=== PATIENT | female | born 1955 | race Caucasian/White ===

== ENCOUNTER 2019-11-22 14:53 | Emergency (ER) | payer OTHER ==
[2019-11-22 14:57] VITALS: TEMP 98.1; BMI 25.8
--- NOTE | 2019-11-22 15:13 | PDOC ---
History of Present Illness - General Chief Complaint: Pain, Acute Stated Complaint: LEFT SHOULDER PAIN Time Seen by Provider: 11/22/19 15:12 - History of Present Illness Initial Comments: 11/22/19 16:06 Chief complaint: Pain left shoulder HPI: Patient was playing pickle ball, ran for the ball and stumbled, falling onto her left shoulder. Now has severe shoulder pain, accompanied by significant nausea. She is uncertain whether she bumped her head, but is certain that her initial impact was on the shoulder. There is also pain in the left lateral neck muscles and trapezius Review of systems: Denies visual or focal neurologic symptoms including numbness tingling pain or weakness in the left arm. Denies chest pain, shortness of breath, abdominal pain, vomiting or diarrhea, vaginal bleeding or discharge, urinary tract symptoms. Remainder of systems reviewed and negative Past medical history: Right shoulder surgery in the distant past, recent depression due to the COVID-19 pandemic, takes Prozac. No other medications. No other significant medical or surgical illnesses. Fully active. Social history: Denies tobacco or drugs. Occasional social alcohol, none recently. Fully active physically. Family history reviewed and noncontributory Physical exam: Alert and oriented well-developed well-nourished moderate distress due to left shoulder pain and nausea, cooperative Afebrile, vital signs normal Atraumatic. PERRLA 4 mm, fundi benign with sharp disc margins and good central venous pulsations. Visual gonzalez intact to confrontation. EOMs full without diplopia. ENT clear Neck without point tenderness or deformity. Full range of motion in flexion and extension without pain. Indicates mild pain/stiffness over the left sternomastoid and trapezius muscles. Lungs clear, full breath sounds bilaterally, no wheezes rales or rhonchi. No chest wall or rib cage tenderness or deformity CV S1-S2 normal without murmur rub or gallop pulses full and symmetric no JVD or edema no bruits Abdomen soft nontender without mass organomegaly Spine/pelvis without point tenderness or deformity Extremities without visible or palpable trauma Left shoulder: No visible or palpable deformity. Diffuse tenderness over the rotator cuff, acromion, and humeral head. Limited range of motion in abduction to approximately 90 degrees due to pain. Pulses full. No distal sensory or motor deficits. Full strength elbow forearm and wrist and hand. Assessment: Left shoulder injury, probably rotator cuff contusion, rule out fracture. No definite head injury from history or physical exam. Nausea could be due to pain or less likely minor head injury Plan: Brain CT, left shoulder x-ray, symptomatic treatment for nausea and pain, further evaluation depending on results. Past History - Medical History Allergies/Adverse Reactions: Allergies Allergy/AdvReac Type Severity Reaction Status Date / Time ciprofloxacin [From Cipro] Allergy Verified 11/22/19 14:54 Sulfa (Sulfonamide Allergy Verified 11/22/19 14:54 Antibiotics) Home Medications: Ambulatory Orders Fluoxetine HCl [Prozac] 40 mg PO DAILY 11/22/19 CVA: No COPD: No CHF: No - Reproductive History Is Patient Now?: No - Psycho-Social/Smoking History Smoking History: Never smoked - Substance Abuse Hx (Audit-C & DAST Scrn) How often the patient has a drink containing alcohol: Monthly or less Number of drinks the patient has on a typical day: 1 or 2 How often the patient has six or more drinks on one occasion: Never Score: In Men: 4 or > Positive; In Women: 3 or > Positive: 1 Screen Result (Pos requires Nsg. Audit-10AR): Negative In the last yr the pt used illegal drug/Rx for NonMed reason: No Score: Yes response is considered Positive: 0 Screen Result (Positive result requires Nsg. DAST-10): Negative *Physical Exam - Vital Signs Last Vital Signs Temp Pulse Resp BP Pulse Ox 98.1 F 63 16 170/76 100 11/22/19 14:54 11/22/19 14:54 11/22/19 14:54 11/22/19 14:54 11/22/19 14:54 ED Treatment Course - LABORATORY CBC & Chemistry Diagram: 11/22/19 15:18 11/22/19 15:14 Medical Decision Making - Medical Decision Making 11/22/19 16:14 Other x-ray negative. This makes rotator cuff contusion most likely. CBC, chemistries, cardiac enzymes normal Nausea is improved with Zofran, pain relieved with intravenous acetaminophen. Awaiting results of CT. 11/22/19 17:15 CBC, chemistries, and cardiac enzymes without significant abnormalities. Head CT is negative. EKG shows sinus rhythm with fusion complexes. Rate of 82/min. Normal axes and intervals. Minimal nonspecific ST-T wave abnormalities are visualized, primarily consisting of ST segment flattening in leads I to V5 and V6. There is no significant depression from baseline. There are no old EKGs for comparison. Attempt was made to contact primary physician Dr. Asya Cowan in [place] the office was closed and therefore no old EKG was available. It is unlikely that there has been any acute cardiac event. The patient tripped while on the racquet court, sustaining a painful injury to her left shoulder, and her symptoms seem undoubtably due to her pain. She has also been depressed and anxious lately. However, she was instructed to return to the ER immediately if there are any cardiac symptoms including chest pain, shortness of breath, diaphoresis, and she was given a copy of her cardiogram, instructed to review it with her primary physician within a few days and consider a cardiology referral if no old EKG is available or if there is a change from prior tracings. She seems to understand and agree, feeling much better at discharge with brother to follow-up as directed. Discharge - Discharge Information Problems reviewed: Yes Clinical Impression/Diagnosis: Rotator cuff injury Qualifiers: Encounter type: initial encounter Laterality: left Qualified Code(s): S46.002A - Unspecified injury of muscle(s) and tendon(s) of the rotator cuff of left shoulder, initial encounter Condition: Stable Disposition: HOME - Admission No - Follow up/Referral Referrals: Stew Yancey DO [Staff Physician] - 1 week - Patient Discharge Instructions Patient Printed Discharge Instructions: Shoulder Sprain Additional Instructions: Use the sling for 1 or 2 days only, then begin range of motion exercises as tolerated. If pain persists see orthopedist for follow-up 1 week. Formal physical therapy may be necessary Use ice and take Advil to reduce inflammation. If nausea persists, continue Zofran Discuss your EKG findings with your primary physician as soon as possible. Return to ER if further symptoms develop. - Post Discharge Activity
[2019-11-22] MEDS ORDERED: ACETAMINOPHEN 1000 MG/100 ML VIAL (NON FORMULARY) IVPB ONE (15:14)
[2019-11-22] MEDS ORDERED: ONDANSETRON 4 MG/2 ML VIAL IVPB ONE ×2 (15:14→17:03)
[2019-11-22] MEDS ORDERED: ACETAMINOPHEN INJECTION 100 ML IVPB ONE (15:17)
[2019-11-22] MEDS ORDERED: ONDANSETRON 4 MG/2 ML VIAL ONE ×2 (15:17→16:56)
[2019-11-22 15:45] LABS: BASO % 0.2 % (0-2.0); EOS % 1.9 % (0-4.5); HEMATOCRIT 36.5 % (32.4-45.2); HEMOGLOBIN 11.3 GM/dl (10.7-15.3); LYMPH % 18.2 % (8-40); MCH 20.3 pg (25.7-33.7); MEAN CELL VOLUME 65.5 fl (80-96); MEAN PLT VOLUME 8.4 fl (7.5-11.1); MONO % 6.7 % (3.8-10.2); PLATELET COUNT 264 K/MM3 (134-434); RBC 5.57 M/mm3 (3.60-5.2); RDW 14.9 % (11.6-15.6); WHITE BLOOD COUNT 10.3 K/mm3 (4.0-10.8)
[2019-11-22 15:46] LABS: ADD RBC MORPHOLOGY YES
[2019-11-22 15:54] LABS: ALBUMIN 4.4 g/dl (3.4-5.0); BILIRUBIN,TOTAL 0.9 mg/dl (0.2-1); CALCIUM 8.8 mg/dl (8.5-10); CREATININE 0.7 mg/dl (0.55-1.3); POTASSIUM 3.5 mmol/L (3.5-5.1); TOT PROT 6.8 g/dl (6.4-8.2)
[2019-11-22 16:32] VITALS: BP 158/80; PULSE 79
--- OUTSIDE RECORDS SUMMARY | 2019-11-22 19:41 | XMS ---
:1955 Author Organization [facility] Support Name Relationship Address Phone SE Unavailable Unavailable [place] [address] [facility] [place] [address] Re-disclosure Warning The records that you are about to access may contain information from federally- assisted alcohol or drug abuse programs. If such information is present, then the following federally mandated warning applies: This information has been disclosed to you from records protected by federal confidentiality rules (42 CFR part 2). The federal rules prohibit you from making any further disclosure of this information unless further disclosure is expressly permitted by the written consent of the person to whom it pertains or as otherwise permitted by 42 CFR part 2. A general authorization for the release of medical or other information is NOT sufficient for this purpose. The Federal rules restrict any use of the information to criminally investigate or prosecute any alcohol or drug abuse patient.The records that you are about to access may contain highly sensitive health information, the redisclosure of which is protected by Article 27-F of the [facility] Public Health law. If you continue you may haveaccess to information: Regarding HIV / AIDS; Provided by facilities licensed or operated by the [facility] Office of Mental Health; or Provided by the [facility] Office for People With Developmental Disabilities. If such information is present, then the following [facility] mandated warning applies: This information has been disclosed to you from confidential records which are protected by state law. State law prohibits you from making any further disclosure of this information without the specific written consent of the person to whom it pertains, or as otherwise permitted by law. Any unauthorized further disclosure in violation of state law may result in a fine or residential sentence or both. A general authorization for the release of medical or other information is NOT sufficient authorization for further disclosure. Insurance Providers Payer name Policy type Policy ID Covered Covered libertarian's Policy P mitchell / Coverage libertarian ID relationship to Live Inf ormation type live [employer] [id number] HEALTH PLANS
[2019-11-22 21:52] LABS: ANISOCYTOSIS 1+; PLATELET ESTIMATE ADEQUATE
--- NOTE | 2019-11-23 14:06 | EKG ---
Test Reason : Blood Pressure : / mmHG Vent. Rate : 082 BPM Atrial Rate : 082 BPM P-R Int : 140 ms QRS Dur : 076 ms QT Int : 410 ms P-R-T Axes : 053 031 056 degrees QTc Int : 479 ms SINUS RHYTHM WITH FUSION COMPLEXES NONSPECIFIC ST AND T WAVE ABNORMALITY ABNORMAL ECG NO PREVIOUS ECGS AVAILABLE Confirmed by NABILA LONDONO MD ([id number]) on 11/23/2019 2:05:34 PM Referred By: DR MELO Confirmed By:NABILA LONDONO MD
== END 2019-11-22 17:46 | disposition home or self-care (01) ==
LOC: FER 14:53
PROC: 3E033NZ Introduction of Analgesics, Hypnotics, Sedatives into Peripheral Vein, Percutaneous Approach (ICD-10-PCS; principal; 2019-11-22)
PROC: 3E033GC Introduction of Other Therapeutic Substance into Peripheral Vein, Percutaneous Approach (ICD-10-PCS; 2019-11-22)
DX: S46.002A Unspecified injury of muscle(s) and tendon(s) of the rotator cuff of left shoulder, initial encounter (principal)
CPT/HCPCS: 36415; 70450-TC; 73030-TC-LT-FY; 80053; 82550; 84484; 85025; 93005; 99285-25; J0131

== ENCOUNTER 2021-01-31 12:21 | Emergency (ER) | payer OTHER ==
[2021-01-31 13:14] VITALS: BP 173/74; PULSE 67; TEMP 98.7; BMI 24.3
== END 2021-01-31 14:19 | disposition home or self-care (01) ==
LOC: FER 12:21
DX: R07.89 Other chest pain (principal); V49.40XA Driver injured in collision with unspecified motor vehicles in traffic accident, initial encounter
CPT/HCPCS: 71046-TC-FY; 99283-25

== ENCOUNTER 2023-06-22 19:37 | Emergency (ER) | payer OTHER ==
[2023-06-22 19:46] VITALS: BP 164/80; PULSE 80; RESP 20; TEMP 98.3; BMI 25.4
[2023-06-22 21:50] LABS: HEMATOCRIT 36.8 % (32.4-45.2); HEMOGLOBIN 11.6 G/dL (10.7-15.3); MCH 20.8 pg (25.7-33.7); MCHC 31.6 g/dl (32.0-36.0); MEAN CELL VOLUME 65.8 fl (80-96); MEAN PLT VOLUME 8.9 fl (7.5-11.1); PLATELET COUNT 242.3 10^3/uL (134-434); RDW 19.5 % (11.6-15.6); WHITE BLOOD COUNT 8.6 10^3/uL (4.0-10.8)
[2023-06-22 22:14] LABS: ALBUMIN 4.4 g/dl (3.4-5.0); BILIRUBIN,TOTAL 0.8 mg/dl (0.2-1); CALCIUM 9.4 mg/dl (8.5-10.1); CREATININE 0.8 mg/dl (0.6-1.3); TOT PROT 6.9 g/dl (6.4-8.2)
== END 2023-06-22 22:46 | disposition home or self-care (01) ==
LOC: FER 19:37
DX: R07.9 Chest pain, unspecified (principal); R00.2 Palpitations
CPT/HCPCS: 36415; 80053; 82550; 84484; 85027; 93005; 99284-25

== ENCOUNTER 2024-01-12 09:42 | Day surgery (SDC) | payer OTHER ==
[2024-01-07 15:43] VITALS: BMI 25.1
[2024-01-12] MEDS ORDERED: NEO/POLYMYX B SULF/DEXAMETH OPHTHALMIC 5ML BOTTLE ONE (10:38)
[2024-01-12] MEDS ORDERED: BSS (NA/CA/MG/K) BALANCED SALT SOLUTION OPHTH SOLN 15 ML BOTTLE ONE (10:38)
[2024-01-12] MEDS ORDERED: LIDOCAINE 1% P/F 10 MG/ML VIAL ONE (10:38)
[2024-01-12] MEDS ORDERED: TETRACAINE 0.5% OPHTH SOLN 2 ML BOTTLE ONE (10:38)
[2024-01-12] MEDS ORDERED: CARBACHOL 0.01% INTRA-OCULAR 1.5 ML VIAL ONE (10:38)
[2024-01-12 11:17] VITALS: RESP 16; TEMP 96.9
[2024-01-12] MEDS: PHENYLEPHRINE 2.5% OPTHALMIC DROP 2ML BOTTLE ONE (11:40)
[2024-01-12] MEDS: CYCLOPENTOLATE 2% OPHTH SOLN 2 ML BOTTLE ONE (11:40)
[2024-01-12] MEDS: TROPICAMIDE 1% OPHTH SOLN 15 ML BOTTLE ONE (11:40)
[2024-01-12] MEDS: TOBRAMYCIN 0.3% OPHTH SOLN 5 ML BOTTLE ONE (11:40)
[2024-01-12] MEDS ORDERED: TOBRAMYCIN 0.3% OPHTH SOLN 5 ML BOTTLE OD ONE (12:00)
[2024-01-12] MEDS ORDERED: MIDAZOLAM HCL 2 MG/2 ML SINGLE DOSE VIAL ONE (12:35)
[2024-01-12 14:20] VITALS: BP 138/67; PULSE 66
== END 2024-01-12 13:50 | disposition home or self-care (01) ==
LOC: FASU 09:42
PROVIDERS: ATTEND Ophthalmology
PROC: 08RJ3JZ Replacement of Right Lens with Synthetic Substitute, Percutaneous Approach (ICD-10-PCS; principal; 2024-01-12 12:42)
DX: H26.8 Other specified cataract (principal)
CPT/HCPCS: 66984; V2632